=== PATIENT | male | born 1990 | race Caucasian/White ===

== ENCOUNTER → 2018-10-20 | Outpatient (CLI) | payer BC ==
--- NOTE | 2018-10-20 13:26 | FL ---
EXAMINATION: Cervical and Thoracic Esophagram DATE OF EXAM: 10/20/2018 CLINICAL INDICATION: 28-year-old male with dysphagia, thyromegaly, sensation of something in the thro at for 5 months. COMPARISON: None Total Fluoroscopy Time: 2 minutes 20 seconds. Total images: 38. FINDINGS: The swallowing mechanism is normal. A minimal impressions are present onto the posterior wall of the hypopharynx and upper cervical esophagus from suspected mild anterior disc bulges. There is no obstru ction to the passage of contrast. The patient is instructed to point to the level of abnormal sensati on. This seems to be located slightly higher to the mild focal impressions. Otherwise, the hypopharyn geal anatomy is preserved. The cervical and thoracic portions have a normal course and caliber. The mucosa is normal and no pers istent filling defect is encountered. Very mild tertiary peristaltic contractions are intermittently noted. In addition, when the patient i s prone/HILL, there is delayed clearance of contrast from the esophagus until the patient is brought u pright. There is a tiny hiatal hernia. Positional and Valsalva maneuvers failed to reproduce gastroesophageal reflux. IMPRESSION: 1. There seems to be some mild nonspecific esophageal dysmotility given intermittent tertiary perista ltic contractions and blunted primary waves causing prolonged accumulation of contrast in the esophag us. The contrast passes when the patient is brought back upright. Further correlation recommended for possible etiologies such as diabetes or thyroid disease. 2. Tiny hiatal hernia. We could not reproduce gastroesophageal reflux during the course of the exam. Note that this does not exclude its possibility. 3. Very mild posterior impressions on to the hypopharynx and upper cervical esophagus from suspected minimal anterior disc bulges of the lower cervical spine. No obstructive changes.
--- NOTE | 2018-10-20 13:39 | US ---
EXAMINATION TYPE: US thyroid st tissue head/neck DATE OF EXAM: 10/20/2018 COMPARISON: NONE CLINICAL HISTORY: 28-year-old male R13.10 DYSPHAGIA. Enlarged thyroid TECHNIQUE: Multiple sonographic images of the thyroid gland are obtained. FINDINGS: GLAND SIZE: Right Lobe: 6.0 x 1.6 x 2.2 cm Overall Parenchyma: Mildly heterogenous Left Lobe: 5.0 x 1.6 x 1.6 cm Overall Parenchyma: Mildly heterogeneous Isthmus Thickness: 0.4 cm NODULES RIGHT: # of nodules measured on right: 0 LEFT: # of nodules measured on left: 0 ISTHMUS: # of nodules measured in the isthmus: 0 Bilateral neck scanned, no evidence of lymphadenopathy. [employer] Installer notes: Mildly heterogeneous gland with enlarged right lobe. IMPRESSION: The right lobe of the thyroid gland measures 6 cm and is enlarged. The left lobe is borderline enlarg ed at 5 cm. No discrete nodule.
== END | disposition home or self-care (01) ==
LOC: RADUSWWP 09:28
PROVIDERS: ATTEND Otolaryngology
DX: E04.9 Nontoxic goiter, unspecified (principal)
CPT/HCPCS: 74220; 76536